=== PATIENT | male | born 1975 | race Caucasian/White ===

== ENCOUNTER 2023-05-28 16:02 | Emergency (ER) | payer BC, OTHER ==
[2023-05-28 16:09] VITALS: TEMP 97; BMI 27.1
[2023-05-28] MEDS ORDERED: KETOROLAC TROMETHAMINE 30 MG/1 ML VIAL IM ONE (16:25)
[2023-05-28] MEDS ORDERED: LIDOCAINE HCL 1%, 10 MG/ML (50 mL VIAL) SQ ONE (16:47)
[2023-05-28] MEDS ORDERED: KETOROLAC TROMETHAMINE 30 MG/1 ML VIAL ONE (16:49)
[2023-05-28] MEDS ORDERED: LIDOCAINE HCL 1%, 10 MG/ML (20ML VIAL) ONE (16:50)
[2023-05-28] MEDS ORDERED: PROPOFOL 200 MG/20 ML VIAL IVPUSH ONE ×4 (17:16→18:44)
[2023-05-28] MEDS ORDERED: PROPOFOL 20 ML ONE ×2 (17:49→20:20)
[2023-05-28] MEDS ORDERED: FENTANYL CITRATE/PF 50 MCG/ML VIAL ONE ×2 (18:01→19:00)
[2023-05-28] MEDS ORDERED: fentaNYL CITRATE 250 MCG/5 ML VIAL IVPUSH ONE (18:44)
[2023-05-28] MEDS ORDERED: morphine CARPU-JECT 2 MG/1 ML DISP.SYRIN IVPUSH ONE (19:49)
[2023-05-28] MEDS ORDERED: morphine SULFATE 4 MG/ML VIAL ONE (19:53)
[2023-05-28] MEDS ORDERED: LIDOCAINE HCL 2% (20ML MULTI-DOSE VIAL) ONE (20:12)
[2023-05-28] MEDS ORDERED: PROPOFOL 200 MG/20 ML VIAL IVPUSH STA ×2 (20:14→20:24)
[2023-05-28 21:44] VITALS: BP 137/77; PULSE 89; RESP 18
== END 2023-05-28 21:44 | disposition home or self-care (01) ==
LOC: JER 16:02
PROC: 0RSJXZZ Reposition Right Shoulder Joint, External Approach (ICD-10-PCS; principal; 2023-05-28)
PROC: 3E0233Z Introduction of Anti-inflammatory into Muscle, Percutaneous Approach (ICD-10-PCS; 2023-05-28)
PROC: 3E033GC Introduction of Other Therapeutic Substance into Peripheral Vein, Percutaneous Approach (ICD-10-PCS; 2023-05-28)
DX: S43.004A Unspecified dislocation of right shoulder joint, initial encounter (principal); M25.511 Pain in right shoulder; W10.8XXA Fall (on) (from) other stairs and steps, initial encounter
CPT/HCPCS: 73030-TC-RT-FY; 99284-25